=== PATIENT | male | born 1995 | race Caucasian/White ===

== ENCOUNTER 2023-04-25 18:56 | Emergency (ER) | payer BC, OTHER ==
[~2023-04-25] VITALS: Ht 182.9 cm; Wt 81.3 kg
[2023-04-25] MEDS ORDERED: LIDOCAINE 1% MDV 20ML VIAL SC ONE (22:20)
[2023-04-25] MEDS ORDERED: BOOSTRIX VACCINE (TETANUS/DIPHTH/ACEL. PERTUSSIS) 0.5ML SYR IM ONE (22:20)
[2023-04-25 23:01] VITALS: TEMP 98.8
[2023-04-26] MEDS ORDERED: CEPH500C PO (00:33)
[2023-04-26] MEDS ORDERED: cefTRIAXone SOD 1GM VIAL IM ONE (00:35)
[2023-04-26] MEDS ORDERED: LIDOCAINE 1% SDV 5ML VIAL DILUENT ONE (00:35)
[2023-04-26 01:17] VITALS: BP 143/66; O2SAT 99
== END 2023-04-26 01:22 | disposition home or self-care (01) ==
LOC: M ED 18:56
DX: S61.211A Laceration without foreign body of left index finger without damage to nail, initial encounter (principal); W29.3XXA Contact with powered garden and outdoor hand tools and machinery, initial encounter; Y92.009 Unspecified place in unspecified non-institutional (private) residence as the place of occurrence of the external cause; Y93.29 Activity, other involving ice and snow; Y99.9 Unspecified external cause status
CPT/HCPCS: 12001; 73140; 90471; 90715; 96372; 99283; J0665; J0696

== ENCOUNTER → 2023-05-03 | Outpatient (CLI) | payer OTHER ==
[~2023-05-03] MED LIST: CEPH500C PO
== END ==
LOC: M RAD 07:10
PROVIDERS: ATTEND Physician Assistant
DX: S62.623A Displaced fracture of middle phalanx of left middle finger, initial encounter for closed fracture (principal); X58.XXXA Exposure to other specified factors, initial encounter; Y92.9 Unspecified place or not applicable

== ENCOUNTER 2023-05-08 08:43 | Day surgery (SDC) | payer OTHER ==
[~2023-05-08] VITALS: Ht 182.9 cm; Wt 85.4 kg
[~2023-05-08 08:43] MED LIST changes: +IBUP-1022 PO; +LIDOCAINE W/EPINEPHRINE 1% 20ML VIAL XX ONE
[2023-05-08] MEDS ORDERED: LIDOCAINE 1% MDV 50ML VIAL SC ONE (10:40)
[2023-05-08] MEDS ORDERED: BACITRACIN OINTMENT 30GM TUBE As Ordered ONE (10:44)
[2023-05-08] MEDS ORDERED: LIDOCAINE 1% SDV 30ML VIAL As Ordered ONE (10:52)
[2023-05-08] MEDS: SODIUM BICARBONATE 8.4% INJ 50MEQ 50ML VIAL XX ONE (11:01)
[2023-05-08 11:56] VITALS: BP 175/95; TEMP 98.2; O2SAT 98
[2023-05-08] MEDS ORDERED: PERCOCET PO (11:59)
== END 2023-05-08 12:16 | disposition home or self-care (01) ==
LOC: M SDC 08:43
PROVIDERS: ATTEND Orthopaedic Surgery Hand Surgery
DX: S62.623A Displaced fracture of middle phalanx of left middle finger, initial encounter for closed fracture (principal); S63.611A Unspecified sprain of left index finger, initial encounter; W29.3XXA Contact with powered garden and outdoor hand tools and machinery, initial encounter; Y92.89 Other specified places as the place of occurrence of the external cause; Y93.29 Activity, other involving ice and snow; Y99.9 Unspecified external cause status

== ENCOUNTER → 2023-05-15 | Outpatient (CLI) | payer OTHER ==
[~2023-05-15] MED LIST changes: -LIDOCAINE W/EPINEPHRINE 1% 20ML VIAL XX ONE; +PERCOCET PO
== END ==
LOC: M SOG 08:00
PROVIDERS: ATTEND Physician Assistant
DX: S62.623D Displaced fracture of middle phalanx of left middle finger, subsequent encounter for fracture with routine healing (principal)

== ENCOUNTER → 2023-07-29 | Outpatient (REF) | payer OTHER ==
[2023-07-29 13:38] LABS: ALBUMIN 3.9 G/DL (3.2-5.2); ALKALINE PHOSPHATASE 46 U/L (46-116); ALT/SGPT 27 U/L (7.0-40); AST/SGOT 16 U/L (<34); BILIRUBIN,TOTAL 0.3 MG/DL (0.3-1.2); BLOOD UREA NITROGEN 9 MG/DL (9-23); CARBON DIOXIDE LEVEL 28 MMOL/L (20-31); CHLORIDE LEVEL 102 MMOL/L (98-107); CHOLESTEROL LEVEL 159 MG/DL (<200); CHOLESTEROL RISK RATIO 4.38 (<5); CREATININE FOR GFR 0.77 MG/DL (0.70-1.30); GLOMERULAR FILTRATION RATE > 60.0 (>60); GLUCOSE, FASTING 78 MG/DL (60-100); HDL CHOLESTEROL 36.3 MG/DL (>40); LDL CHOLESTEROL 92.9 MG/DL (<100); NON-HDL-C 122.7 MG/DL; POTASSIUM SERUM 4.4 MMOL/L (3.5-5.1); SODIUM LEVEL 139 MMOL/L (136-145); THYROID STIMULATING HORMONE 2.482 uIU/ML (0.55-4.78); TRIGLYCERIDES LEVEL 149 MG/DL (<150)
[2023-07-29 14:05] LABS: HEMOGLOBIN A1c 5.2 % (4.0-6.0)
[2023-07-29 15:49] LABS: HIV 1&2 SCREEN NEGATIVE (NEGATIVE)
== END ==
LOC: M LAB REF 12:45
PROVIDERS: ATTEND Family Medicine Addiction Medicine
DX: Z00.01 Encounter for general adult medical examination with abnormal findings (principal); Z83.3 Family history of diabetes mellitus

== ENCOUNTER → 2024-10-08 | Outpatient (REF) | payer OTHER ==
[2024-10-08 19:44] LABS: Trichomonas vaginalis (AMP) NOT DETECTED (NEGATIVE)
[2024-10-08 20:07] LABS: GC DNA AMPLIFICATION NEGATIVE (NEGATIVE)
== END ==
LOC: M LAB REF 18:06
PROVIDERS: ATTEND Physician Assistant
DX: Z20.2 Contact with and (suspected) exposure to infections with a predominantly sexual mode of transmission (principal)

== ENCOUNTER → 2025-01-28 | Outpatient (REF) | payer OTHER ==
[~2025-01-28] MED LIST changes: -IBUP-1022 PO; +IBUP600T42 PO
== END ==
LOC: M LAB REF 11:57
PROVIDERS: ATTEND Physician Assistant
DX: J02.9 Acute pharyngitis, unspecified (principal)